=== PATIENT | female | born 1995 | race Caucasian/White ===

== ENCOUNTER 2017-05-05 20:40 | Emergency (ER) | payer OTHER ==
[~2017-05-05] VITALS: Ht 167.6 cm; Wt 77.9 kg
[~2017-05-05 20:40] MED LIST: ACETAMINOPHEN325 M1 PO; BACTRIM,SEPT1 TABLET; BUSPAR10 MG; CLEOCIN300 MG; DEPO-PROVER150 MG/ML IM; EXTRA STRENGTH500 M1 PO; IBUPROFEN800 MG PO; NOHOMEMEDS; PERCOCET 5/31 TABLET PO; PRENATAL TABLE1 EACH PO; PYRIDIUM100 MG PO; SERTRALINE HCL25 MG; SERTRALINE HCL50 MG; XANAX0.5 MG PO; ZOFRAN4 MG PO
[2017-05-05 20:53] VITALS: BP 128/86
== END 2017-05-05 21:46 | disposition left against medical advice (07) ==
LOC: EME 20:40
DX: M25.571 Pain in right ankle and joints of right foot (principal); Z53.21 Procedure and treatment not carried out due to patient leaving prior to being seen by health care provider